=== PATIENT | male | born 1970 | race Caucasian/White ===

== ENCOUNTER 2017-09-16 02:53 | Emergency (ER) | payer SELFPAY ==
[~2017-09-16] VITALS: Ht 170.2 cm; Wt 104.3 kg
[~2017-09-16 02:53] MED LIST: BUTA1CAP36 PO; CYC10 PO; CYCL10TA29 PO; DICL-195 PO; HYDR-3250 PO; HYDR-385 PO; HYDR-4309 PO; IBUP-1618; IBUP400T13 PO; KET10 PO; LISINOPRIL; LOR5/325 PO; LOR7.5/325 PO; NAP250 PO; NO HOME MEDS; ONDA4TAB PO; OXYC-865; OXYC1TAB54 PO; PROM-110 PO; SUMA25TA26 PO; TIZA4CAP6 PO; TOBROD OD; [UNRECOGNIZED DRUG - CODE] PO; [UNRECOGNIZED DRUG - CODE] PO
--- NOTE | 2017-09-16 02:57 | ER Report ---
History and Physical Time Seen By MD: 02:55 HPI/ROS CHIEF COMPLAINT: Nausea, vomiting, diarrhea HISTORY OF PRESENT ILLNESS: 46-year-old male presents ambulatory the ER complaining of vomiting and diarrhea for almost 16 hours. Patient had an ache salad sandwich yesterday for lunch. Patient's had severe abdominal cramps, bloating, vomiting and diarrhea without fever. Patient denies recent antibiotics or exposure to ill contacts. REVIEW OF SYSTEMS: Respiratory: No cough, no dyspnea. Cardiovascular: No chest pain, no palpitations. Gastrointestinal: As above Musculoskeletal: No back pain. Allergies: Coded Allergies: No Known Drug Allergies (Unverified , 09/16/17) Home Meds Active Scripts Promethazine Hcl (PROMETHAZINE HCL) 25 Mg Tablet, 25 MG PO Q4H Y for NAUSEA/ VOMITING, #14 TAB Prov:LUIS MORILLO DO 09/16/17 Ciprofloxacin Hcl (CIPRO) 500 Mg Tablet, 500 MG PO BID for infectious diarrhea, #10 Prov:LUIS MORILLO DO 09/16/17 Ondansetron Hcl (ZOFRAN) 4 Mg Tablet, 4 MG PO Q6H Y for NAUSEA/VOMITING, #12 Prov:LUIS MORILLO DO 09/16/17 Hydrocodone Bit/Acetaminophen (HYDROCODON-ACETAMINOPHEN 5-325) 1 Each Tablet, 1 EACH PO Q4-6H Y for PAIN, #12 TAB 0 Refills Prov:BRYAN ALMARAZ MD 06/28/16 Chlorzoxazone (CHLORZOXAZONE) 500 Mg Tablet, 500 MG PO Q8H Y for MUSCLE SPASMS, #30 TAB 0 Refills Prov:BRYAN ALMARAZ MD 06/28/16 Discontinued Scripts Hydrocodone Bit/Acetaminophen (NORCO 5-325 TABLET) 1 Each Tablet, 1 EACH PO Q4- 6H Y for PAIN, #10 TAB Prov:STEPHANIE MCGHEE-C 10/26/16 Chlorzoxazone (CHLORZOXAZONE) 500 Mg Tablet, 500 MG PO TID Y for pain, #12 TAB Prov:STEPHANIE MCGHEE-C 10/26/16 Ondansetron (ZOFRAN ODT) 4 Mg Tab.rapdis, 4 MG PO Q6H Y for NAUSEA/VOMITING, # 20 TAB.CHON 0 Refills Prov:BRYAN ALMARAZ MD 06/28/16 Tizanidine Hcl (ZANAFLEX) 4 Mg Capsule, 4 MG PO TID for Muscle Relaxant, #12 CAPSULE 0 Refills Prov:NAGA GAXIOLA MD 06/23/16 Hydrocodone Bit/Acetaminophen (HYDROCODON-ACETAMINOPHEN 5-325) 1 Each Tablet, 1 EACH PO Q4H for PAIN, #12 TAB Prov:NAGA GAXIOLA MD 06/23/16 Past Medical/Surgical History Migraines, chronic back pain, chronic hip pain Reviewed Nurses Notes: Yes Old Medical Records Reviewed: Yes Hx Smoking: No Smoking Status: Never Smoker Exposure to Second Hand Smoke?: No Hx Substance Use Disorder: No Hx Alcohol Use: No Constitutional Vital Sign - Last 24 Hours 09/16/17 09/16/17 09/16/17 09/16/17 02:58 03:01 03:08 03:30 Temp 98.9 Pulse 115 114 Resp 16 B/P (MAP) 146/100 146/100 (115) 158/101 (120) Pulse Ox 93 94 O2 Delivery Room Air 09/16/17 09/16/17 09/16/17 09/16/17 03:38 03:53 03:56 04:01 Pulse 103 107 106 108 Pulse Ox 95 95 95 09/16/17 09/16/17 09/16/17 09/16/17 04:16 04:30 04:31 04:36 Pulse 102 103 105 B/P (MAP) 126/73 (90) Pulse Ox 96 97 96 09/16/17 04:51 Pulse 102 Pulse Ox 96 Physical Exam General Appearance: The patient is alert, has no immediate need for airway protection and no current signs of toxicity. Vital signs stable, moderate tachycardia to 1:15, afebrile, slightly pale appearing, skin warm and dry HEENT: Pupils equal and round no injection. Oropharynx without redness or exudate, mucous members are moist Respiratory: Chest is non tender, lungs are clear to auscultation. Cardiac: regular rate and rhythm Gastrointestinal: Abdomen is soft, mild distention, non tender, no masses, bowel sounds hyperactive. Musculoskeletal: Neck: Neck is supple and non tender. No lymphadenopathy Extremities have full range of motion and are non tender. Skin: No rashes or lesions. DIFFERENTIAL DIAGNOSIS: After history and physical exam differential diagnosis was considered for abdominal pain including but not limited to appendicitis, cholecystitis, gastroenteritis, food poisoning, viral syndrome gastritis and urinary tract infection. Medical Decision Making Data Points Result Diagram: 09/16/17 0320 09/16/17 0320 Laboratory Hematology Test 09/16/17 03:00 09/16/17 03:20 Urine Color Yellow Urine Clarity Clear Urine pH 5.0 pH (4.8-9.5) Urine Specific [place] 1.023 Urine Protein Negative mg/dL (NEGATIVE) Urine Glucose (UA) Negative mg/dL (NEGATIVE) Urine Ketones Negative mg/dL (NEGATIVE) Urine Blood Negative (NEGATIVE) Urine Nitrite Negative (NEGATIVE) Urine Bilirubin Negative (NEGATIVE) Urine Urobilinogen Negative mg/dL (0.2-1.9) Urine Leukocyte Esterase Negative (NEGATIVE) Urine RBC None /HPF (0-2/HPF) Urine WBC <1 /HPF (0-5/HPF) Urine Squamous Epithelial Cells None /LPF (</=FEW) Urine Bacteria Negative /HPF (NONE-FEW) Urine Mucus Few /HPF (NONE-FEW) Stool Leukocytes, Qualitative Positive Red Blood Count 6.10 M/uL (4.00-5.60) Mean Corpuscular Volume 87.7 fL (80.0-96.0) Mean Corpuscular Hemoglobin 30.5 pg (26.0-33.0) Mean Corpuscular Hemoglobin Concent 34.7 g/dL (32.0-36.0) Red Cell Distribution Width 12.8 % (11.5-14.5) Mean Platelet Volume 9.0 fL (7.2-11.1) Neutrophils (%) (Auto) 88.4 % (39.4-72.5) Lymphocytes (%) (Auto) 4.5 % (17.6-49.6) Monocytes (%) (Auto) 6.7 % (4.1-12.4) Eosinophils (%) (Auto) 0.1 % (0.4-6.7) Basophils (%) (Auto) 0.3 % (0.3-1.4) Nucleated RBC Relative Count (auto) 0.3 /100WBC Neutrophils # (Auto) 12.3 K/uL (2.0-7.4) Lymphocytes # (Auto) 0.6 K/uL (1.3-3.6) Monocytes # (Auto) 0.9 K/uL (0.3-1.0) Eosinophils # (Auto) 0.0 K/uL (0.0-0.5) Basophils # (Auto) 0.0 K/uL (0.0-0.1) Nucleated RBC Absolute Count (auto) 0.04 K/uL Sodium Level 135 mmol/L (137-145) Potassium Level 4.3 mmol/L (3.5-5.0) Chloride Level 99 mmol/L (98-107) Carbon Dioxide Level 21 mmol/L (22-30) Blood Urea Nitrogen 15 mg/dl (9-21) Creatinine 0.90 mg/dl (0.66-1.25) Glomerular Filtration Rate Calc > 60.0 Random Glucose 130 mg/dl (75-110) Lactate 1.6 mmol/L (0.7-2.1) Calcium Level 9.8 mg/dl (8.4-10.2) Total Bilirubin 1.0 mg/dl (0.2-1.3) Aspartate Amino Transf (AST/SGOT) 19 U/L (0-35) Alanine Aminotransferase (ALT/SGPT) 47 U/L (0-56) Alkaline Phosphatase 98 U/L (0-126) Total Protein 7.7 gm/dl (6.3-8.2) Albumin 4.6 g/dl (3.5-5.0) Amylase Level 44 U/L (0-110) Lipase 83 U/L (23-300) Chemistry Test 09/16/17 03:00 09/16/17 03:20 Urine Color Yellow Urine Clarity Clear Urine pH 5.0 pH (4.8-9.5) Urine Specific [place] 1.023 Urine Protein Negative mg/dL (NEGATIVE) Urine Glucose (UA) Negative mg/dL (NEGATIVE) Urine Ketones Negative mg/dL (NEGATIVE) Urine Blood Negative (NEGATIVE) Urine Nitrite Negative (NEGATIVE) Urine Bilirubin Negative (NEGATIVE) Urine Urobilinogen Negative mg/dL (0.2-1.9) Urine Leukocyte Esterase Negative (NEGATIVE) Urine RBC None /HPF (0-2/HPF) Urine WBC <1 /HPF (0-5/HPF) Urine Squamous Epithelial Cells None /LPF (</=FEW) Urine Bacteria Negative /HPF (NONE-FEW) Urine Mucus Few /HPF (NONE-FEW) Stool Leukocytes, Qualitative Positive White Blood Count 13.9 k/uL (4.5-11.0) Red Blood Count 6.10 M/uL (4.00-5.60) Hemoglobin 18.6 g/dL (14.0-18.0) Hematocrit 53.5 % (42.0-52.0) Mean Corpuscular Volume 87.7 fL (80.0-96.0) Mean Corpuscular Hemoglobin 30.5 pg (26.0-33.0) Mean Corpuscular Hemoglobin Concent 34.7 g/dL (32.0-36.0) Red Cell Distribution Width 12.8 % (11.5-14.5) Platelet Count 267 K/uL (150-450) Mean Platelet Volume 9.0 fL (7.2-11.1) Neutrophils (%) (Auto) 88.4 % (39.4-72.5) Lymphocytes (%) (Auto) 4.5 % (17.6-49.6) Monocytes (%) (Auto) 6.7 % (4.1-12.4) Eosinophils (%) (Auto) 0.1 % (0.4-6.7) Basophils (%) (Auto) 0.3 % (0.3-1.4) Nucleated RBC Relative Count (auto) 0.3 /100WBC Neutrophils # (Auto) 12.3 K/uL (2.0-7.4) Lymphocytes # (Auto) 0.6 K/uL (1.3-3.6) Monocytes # (Auto) 0.9 K/uL (0.3-1.0) Eosinophils # (Auto) 0.0 K/uL (0.0-0.5) Basophils # (Auto) 0.0 K/uL (0.0-0.1) Nucleated RBC Absolute Count (auto) 0.04 K/uL Glomerular Filtration Rate Calc > 60.0 Lactate 1.6 mmol/L (0.7-2.1) Calcium Level 9.8 mg/dl (8.4-10.2) Total Bilirubin 1.0 mg/dl (0.2-1.3) Aspartate Amino Transf (AST/SGOT) 19 U/L (0-35) Alanine Aminotransferase (ALT/SGPT) 47 U/L (0-56) Alkaline Phosphatase 98 U/L (0-126) Total Protein 7.7 gm/dl (6.3-8.2) Albumin 4.6 g/dl (3.5-5.0) Amylase Level 44 U/L (0-110) Lipase 83 U/L (23-300) Urinalysis Test 09/16/17 03:00 Urine Color Yellow Urine Clarity Clear Urine pH 5.0 pH (4.8-9.5) Urine Specific [place] 1.023 Urine Protein Negative mg/dL (NEGATIVE) Urine Glucose (UA) Negative mg/dL (NEGATIVE) Urine Ketones Negative mg/dL (NEGATIVE) Urine Blood Negative (NEGATIVE) Urine Nitrite Negative (NEGATIVE) Urine Bilirubin Negative (NEGATIVE) Urine Urobilinogen Negative mg/dL (0.2-1.9) Urine Leukocyte Esterase Negative (NEGATIVE) Urine RBC None /HPF (0-2/HPF) Urine WBC <1 /HPF (0-5/HPF) Urine Squamous Epithelial Cells None /LPF (</=FEW) Urine Bacteria Negative /HPF (NONE-FEW) Urine Mucus Few /HPF (NONE-FEW) Microbiology Microbiology Date/Time Source Procedure Growth Status 09/16/17 03:00 Stool Gram Stain - Final Resulted 09/16/17 03:00 Stool Stool Culture Pending Resulted ED Course/Re-evaluation Clinical Indication for ER IV: Hydration, IV Access ED Course Patient was admitted to an examination room. H&P was done. The dental diagnoses was considered. On clinical examination. Patient has benign nonsurgical abdomen. His vital signs are stable. He is tachycardic. I suspect he is volume depleted from his diarrhea and vomiting. A specimen of the diarrhea was analyzed and shows white blood cells, suspicious for infectious bacteria. His white blood cell count elevated at 13,900. Patient received 2 L of fluid, Zofran 8 mg, Toradol 30, Phenergan 12.5 g IV. He feels much better. His vomiting is stopped. Be discharged home on Zofran, Phenergan. He is given 2 Percocet. Patient advised clear liquid diet for 24- 48 hours. He is covered with Cipro for potential infectious diarrhea. Decision to Disposition Date: Sep 16, 2017 Decision to Disposition Time: 03:12 Depart Departure Latest Vital Signs Vital Signs Date Time Temp Pulse Resp B/P (MAP) Pulse Ox O2 Delivery O2 Flow Rate FiO2 09/16/17 04:51 102 96 09/16/17 04:30 126/73 (90) 09/16/17 02:58 98.9 16 Room Air Impression: Primary Impression: Food poisoning Additional Impression: Chronic pain disorder Condition: Improved Disposition: HOME OR SELF-CARE New Scripts Promethazine Hcl (PROMETHAZINE HCL) 25 Mg Tablet 25 MG PO Q4H Y for NAUSEA/VOMITING, #14 TAB Prov: LUIS MORILLO DO 09/16/17 Ciprofloxacin Hcl (CIPRO) 500 Mg Tablet 500 MG PO BID for infectious diarrhea, #10 Prov: LUIS MORILLO DO 09/16/17 Ondansetron Hcl (ZOFRAN) 4 Mg Tablet 4 MG PO Q6H Y for NAUSEA/VOMITING, #12 Prov: LUIS MORILLO DO 09/16/17 Patient Instructions: Clear Liquid Diet (ED), Food Poisoning (ED) Additional Instructions: Follow clear liquid diet for 24 hours, then advance to [place] diet, bananas, rice , applesauce, toast Problem Qualifiers Primary Impression: Food poisoning Encounter type: initial encounter Injury intent: accidental or unintentional Qualified Codes: T62.91XA - Toxic effect of unspecified noxious substance eaten as food, accidental (unintentional), initial encounter LUIS MORILLO DO Sep 16, 2017 02:57
[2017-09-16] MEDS ORDERED: NS(*) 0.9% 1000 ML BAG 1,000 ML IV ONE ×2 (03:08→03:45)
[2017-09-16] MEDS ORDERED: KETOROLAC 30 MG/ML VIAL IVP ONE (03:10)
[2017-09-16] MEDS ORDERED: ONDANSETRON 4 MG/2 ML VIAL IVP ONE (03:10)
[2017-09-16] MEDS ORDERED: ONDA4TAB97 PO (03:13)
[2017-09-16 03:45] LABS: PLATELET COUNT, AUTOMATED 267 K/uL (150-450)
[2017-09-16] MEDS ORDERED: PROMETHAZINE 25 MG/ML 1 ML AMP IVP ONE (03:45)
[2017-09-16 04:30] VITALS: BP 126/73
[2017-09-16] MEDS ORDERED: CIPR-344 PO (04:30)
[2017-09-16] MEDS ORDERED: PROM-110 PO (04:48)
[2017-09-16] MEDS ORDERED: CIPROFLOXACIN 500 MG TAB PO ONE (04:50)
[2017-09-16] MEDS ORDERED: PROMETHAZINE HCL 25 MG TAB TH 2 TAB/BOTTLE PO ONE (04:50)
[2017-09-16] MEDS ORDERED: oxyCODONE/ACETAMIN 5/325MG TH 2 TAB/BOTTLE PO ONE (04:50)
== END 2017-09-16 05:04 | disposition home or self-care (01) ==
LOC: ER 03:43
DX: T62.91XA Toxic effect of unspecified noxious substance eaten as food, accidental (unintentional), initial encounter (principal); G89.4 Chronic pain syndrome
CPT/HCPCS: 81001; 82150; 83605; 83630; 83690; 85025; 87045; 87205; 96361; 96374; 96375; 99283; J1885; J2405; J7030; 82040; 82247; 82310; 82374; 82435; 82565; 82947; 84075; 84132; 84155; 84295; 84450; 84460; 84520

== ENCOUNTER 2017-09-17 22:46 | Emergency (ER) | payer SELFPAY ==
[~2017-09-17 22:46] MED LIST changes: +CIPR-344 PO; +ONDA4TAB97 PO
--- NOTE | 2017-09-17 23:09 | ER Report ---
History and Physical Time Seen By MD: 23:09 Hx. of Stated Complaint: PT RETURN VISIT FOR FOOD POISONING FROM YESTERDAY. SAME SYMPTOMS. N/V/D. HPI/ROS CHIEF COMPLAINT: abdominal cramping and nausea HISTORY OF PRESENT ILLNESS: This is a 46 year old male. He is having continued abdominal cramping. He was diagnosed with what appeared to be food poisoning 2 nights ago. The diarrhea has started to resolve and stools are beginning to firm up. He still has nausea and vomiting. Generalized abdominal cramping. Normal urination. No fevers or chills. REVIEW OF SYSTEMS: Constitutional: As above. Eyes: No vision changes. ENT: No sore throat. No congestion. Cardiovascular: No chest pain. Respiratory: No shortness of breath. Gastrointestinal: As above. Genitourinary: As above. Musculoskeletal: No back pain. No extremity pain. Skin: No rashes. Neurological: No numbness. No weakness. Allergies: Coded Allergies: No Known Drug Allergies (Unverified , 09/17/17) Home Meds Active Scripts Ondansetron (ZOFRAN ODT) 4 Mg Tab.rapdis, 4 MG PO Q6H Y for NAUSEA/VOMITING, # 20 TAB.CHON 0 Refills Prov:BRYAN ALMARAZ MD 09/18/17 Oxycodone Hcl/Acetaminophen (PERCOCET 5-325 MG TABLET) 1 Each Tablet, 1 EACH PO Q4H Y for PAIN, #12 TAB 0 Refills Prov:BRYAN ALMARAZ MD 09/18/17 Promethazine Hcl (PROMETHAZINE HCL) 25 Mg Tablet, 25 MG PO Q4H Y for NAUSEA/ VOMITING, #14 TAB Prov:LUIS MORILLO DO 09/16/17 Ciprofloxacin Hcl (CIPRO) 500 Mg Tablet, 500 MG PO BID for infectious diarrhea, #10 Prov:LUIS MORILLO DO 09/16/17 Ondansetron Hcl (ZOFRAN) 4 Mg Tablet, 4 MG PO Q6H Y for NAUSEA/VOMITING, #12 Prov:LUIS MORILLO DO 09/16/17 Hydrocodone Bit/Acetaminophen (HYDROCODON-ACETAMINOPHEN 5-325) 1 Each Tablet, 1 EACH PO Q4-6H Y for PAIN, #12 TAB 0 Refills Prov:BRYAN ALMARAZ MD 06/28/16 Chlorzoxazone (CHLORZOXAZONE) 500 Mg Tablet, 500 MG PO Q8H Y for MUSCLE SPASMS, #30 TAB 0 Refills Prov:BRYAN ALMARAZ MD 06/28/16 Discontinued Scripts Hydrocodone Bit/Acetaminophen (NORCO 5-325 TABLET) 1 Each Tablet, 1 EACH PO Q4- 6H Y for PAIN, #10 TAB Prov:STEPHANIE MCGHEE PA-C 10/26/16 Chlorzoxazone (CHLORZOXAZONE) 500 Mg Tablet, 500 MG PO TID Y for pain, #12 TAB Prov:STEPHANIE MCGHEE PA-C 10/26/16 Ondansetron (ZOFRAN ODT) 4 Mg Tab.rapdis, 4 MG PO Q6H Y for NAUSEA/VOMITING, # 20 TAB.CHON 0 Refills Prov:BRYAN ALMARAZ MD 06/28/16 Tizanidine Hcl (ZANAFLEX) 4 Mg Capsule, 4 MG PO TID for Muscle Relaxant, #12 CAPSULE 0 Refills Prov:NAGA GAXIOLA MD 06/23/16 Hydrocodone Bit/Acetaminophen (HYDROCODON-ACETAMINOPHEN 5-325) 1 Each Tablet, 1 EACH PO Q4H for PAIN, #12 TAB Prov:NAGA GAXIOLA MD 06/23/16 Reviewed Nurses Notes: Yes Hx Smoking: No Smoking Status: Never Smoker Exposure to Second Hand Smoke?: No Hx Substance Use Disorder: No Hx Alcohol Use: No Constitutional Vital Sign - Last 24 Hours 09/17/17 09/17/17 09/17/17 09/17/17 22:52 23:01 23:04 23:16 Temp 99.1 Pulse 112 109 110 Resp 16 B/P (MAP) 136/88 (104) 136/88 Pulse Ox 93 94 92 O2 Delivery Room Air 09/17/17 09/17/17 09/18/17 09/18/17 23:31 23:46 00:31 00:48 Pulse 112 106 100 85 Resp 16 B/P (MAP) 141/90 (107) Pulse Ox 92 88 94 92 O2 Delivery Room Air Physical Exam General Appearance: The patient is alert. No acute distress. Eyes: Pupils are equal, round. No pallor, injection or icterus. ENT: Mucous membranes are moist. Normal oral mucosa. Posterior oropharynx is normal. Respiratory: Lungs are clear to auscultation. Cardiovascular: Regular rate and rhythm. No murmurs, gallops or rubs. Normal capillary refill. Gastrointestinal: Abdomen is diffusely discomfort with palpation, no focal pain. Slight distention. No rebound or guarding. No masses or organomegaly. Normal active bowel sounds. Neurological: Alert and oriented x3. Skin: Warm and dry. No rashes. Musculoskeletal: Extremities are nontender. No tenderness in palpation of the cervical, thoracic and lumbar spine. DIFFERENTIAL DIAGNOSIS: After history and physical exam, differential diagnosis was considered for abdominal pain including but not limited to food poisoning or enteritis. Medical Decision Making Data Points Result Diagram: 09/17/17230409/17/172304 Laboratory Hematology Test 09/17/17 23:05 Red Blood Count 4.30 M/uL (4.00-5.60) Mean Corpuscular Volume 91.0 fL (80.0-96.0) Mean Corpuscular Hemoglobin 31.0 pg (26.0-33.0) Mean Corpuscular Hemoglobin Concent 34.0 g/dL (32.0-36.0) Red Cell Distribution Width 13.1 % (11.5-14.5) Mean Platelet Volume 8.7 fL (7.2-11.1) Neutrophils (%) (Auto) 81.8 % (39.4-72.5) Lymphocytes (%) (Auto) 7.1 % (17.6-49.6) Monocytes (%) (Auto) 10.3 % (4.1-12.4) Eosinophils (%) (Auto) 0.7 % (0.4-6.7) Basophils (%) (Auto) 0.1 % (0.3-1.4) Nucleated RBC Relative Count (auto) 0.0 /100WBC Neutrophils # (Auto) 6.6 K/uL (2.0-7.4) Lymphocytes # (Auto) 0.6 K/uL (1.3-3.6) Monocytes # (Auto) 0.8 K/uL (0.3-1.0) Eosinophils # (Auto) 0.1 K/uL (0.0-0.5) Basophils # (Auto) 0.0 K/uL (0.0-0.1) Nucleated RBC Absolute Count (auto) 0.00 K/uL Sodium Level 135 mmol/L (137-145) Potassium Level 4.4 mmol/L (3.5-5.0) Chloride Level 104 mmol/L (98-107) Carbon Dioxide Level 17 mmol/L (22-30) Blood Urea Nitrogen 17 mg/dl (9-21) Creatinine 0.90 mg/dl (0.66-1.25) Glomerular Filtration Rate Calc > 60.0 Random Glucose 110 mg/dl (75-110) Calcium Level 8.5 mg/dl (8.4-10.2) Total Bilirubin 0.9 mg/dl (0.2-1.3) Aspartate Amino Transf (AST/SGOT) 42 U/L (0-35) Alanine Aminotransferase (ALT/SGPT) 58 U/L (0-56) Alkaline Phosphatase 80 U/L (0-126) Total Protein 7.5 gm/dl (6.3-8.2) Albumin 4.3 g/dl (3.5-5.0) Chemistry Test 09/17/17 23:05 White Blood Count 8.1 k/uL (4.5-11.0) Red Blood Count 4.30 M/uL (4.00-5.60) Hemoglobin 13.3 g/dL (14.0-18.0) Hematocrit 39.2 % (42.0-52.0) Mean Corpuscular Volume 91.0 fL (80.0-96.0) Mean Corpuscular Hemoglobin 31.0 pg (26.0-33.0) Mean Corpuscular Hemoglobin Concent 34.0 g/dL (32.0-36.0) Red Cell Distribution Width 13.1 % (11.5-14.5) Platelet Count 148 K/uL (150-450) Mean Platelet Volume 8.7 fL (7.2-11.1) Neutrophils (%) (Auto) 81.8 % (39.4-72.5) Lymphocytes (%) (Auto) 7.1 % (17.6-49.6) Monocytes (%) (Auto) 10.3 % (4.1-12.4) Eosinophils (%) (Auto) 0.7 % (0.4-6.7) Basophils (%) (Auto) 0.1 % (0.3-1.4) Nucleated RBC Relative Count (auto) 0.0 /100WBC Neutrophils # (Auto) 6.6 K/uL (2.0-7.4) Lymphocytes # (Auto) 0.6 K/uL (1.3-3.6) Monocytes # (Auto) 0.8 K/uL (0.3-1.0) Eosinophils # (Auto) 0.1 K/uL (0.0-0.5) Basophils # (Auto) 0.0 K/uL (0.0-0.1) Nucleated RBC Absolute Count (auto) 0.00 K/uL Glomerular Filtration Rate Calc > 60.0 Calcium Level 8.5 mg/dl (8.4-10.2) Total Bilirubin 0.9 mg/dl (0.2-1.3) Aspartate Amino Transf (AST/SGOT) 42 U/L (0-35) Alanine Aminotransferase (ALT/SGPT) 58 U/L (0-56) Alkaline Phosphatase 80 U/L (0-126) Total Protein 7.5 gm/dl (6.3-8.2) Albumin 4.3 g/dl (3.5-5.0) EKG/Imaging Imaging COMPUTED TOMOGRAPHY ABDOMEN AND PELVIS WITH INTRAVENOUS CONTRAST DATE OF EXAM: 09/17/2017 11:14 PM INDICATION: Diarrhea, cramps and pain, distended. COMPARISON: None. TECHNIQUE: Contrast enhanced abdomen and pelvis CT performed during the injection of 75 ml of Isovue 370. Sagittal and coronal reconstructions were performed. One of the following dose optimization techniques was utilized in the performance of this exam: Automated exposure control; adjustment of the mA and/or kV according to the patient's size; or use of an iterative reconstruction technique. Specific details can be referenced in the facility's radiology CT exam operational policy. FINDINGS: Lung bases: 3 mm subpleural nodule in the right lower lobe on image 20 series 2. Liver and hepatic vasculature: Liver is enlarged and diffusely hypoattenuating. No suspicious focal lesion or acute abnormality. Gallbladder and bile ducts: Normal. Spleen: Normal. Pancreas: Mild prominence of the pancreatic duct. No focal lesion or acute inflammation. Adrenals: Normal. Kidneys, ureters and bladder: Normal. Retroperitoneum and aorta: Normal caliber no adenopathy. Aorta with minimal atherosclerosis. GI tract, mesentery and peritoneum: There are multiple mildly prominent loops of fluid-filled small bowel. No definite evidence of obstruction. No pneumatosis, pneumoperitoneum or free fluid. Normal appendix. Prostate and seminal vesicles: Normal. Bones and soft tissues: No acute abnormality or suspicious lesion. Bilateral sacroiliitis. Multilevel Schmorl's nodes. Small fat-containing inguinal hernias. IMPRESSION: 1. Suspected mild infectious or inflammatory enteritis. 2. Hepatomegaly and probable steatosis. 3. Right lower lobe 3 mm subpleural nodule. Current Fleischner Society recommendations for incidental pulmonary nodules <6mm in size (average of long and short axis): - In a patient with low risk for malignancy (i.e., minimal or absent smoking history, no known malignancy or other risk factors): No routine follow-up. - In a patient at high risk for malignancy (e.g., smoking history and/or other known risk factors): Optional noncontrast CT at 12 months. If unchanged no further follow-up necessary. Nodules less than 6 mm do not require routine follow-up, but certain patients at high risk with suspicious nodule morphology, upper lobe location, or both may warrant 12 month follow-up. Calos H, Rob D, Britni J, et al. Guidelines for management of small pulmonary nodules detected on CT images: from the Fleischner society 2017. Report Dictated By: Carlos Manuel Shirley MD at 09/18/2017 12:13 AM ED Course/Re-evaluation Clinical Indication for ER IV: Hydration, IV Access ED Course Discussed results of CT scan and labs with the patient. The abdominal cramps and nausea appears to be a non-specific enteritis, possibly due to virus verus food poisoning. No changes in plan at this time, continue current medications. Provided some Percocet for pain and Zofran for nausea. Recommended follow-up with primary care for this as well as pulmonary nodule. Decision to Disposition Date: Sep 18, 2017 Decision to Disposition Time: 00:33 Depart Departure Latest Vital Signs Vital Signs Date Time Temp Pulse Resp B/P (MAP) Pulse Ox O2 Delivery O2 Flow Rate FiO2 09/18/17 00:48 85 16 141/90 (107) 92 Room Air 09/17/17 23:04 99.1 Impression: Primary Impression: Enteritis Condition: Improved Disposition: HOME OR SELF-CARE New Scripts Ondansetron (ZOFRAN ODT) 4 Mg Tab.rapdis 4 MG PO Q6H Y for NAUSEA/VOMITING, #20 TAB.CHON 0 Refills Prov: BRYAN ALMARAZ MD 09/18/17 Oxycodone Hcl/Acetaminophen (PERCOCET 5-325 MG TABLET) 1 Each Tablet 1 EACH PO Q4H Y for PAIN, #12 TAB 0 Refills Prov: BRYAN ALMARAZ MD 09/18/17 Patient Instructions: Enteritis (ED) Additional Instructions: This should resolve with further time. Keep drinking extra fluids the next few days. Take Percocet 5/325, one every 4 hours as needed for pain. Take Zofran 4mg, one every 6 hours as needed for nausea. BRYAN ALMARAZ MD Sep 17, 2017 23:09
[2017-09-17] MEDS ORDERED: MORPHINE 4 MG/ML SDV IVP ONE (23:15)
[2017-09-17] MEDS ORDERED: ONDANSETRON 4 MG/2 ML VIAL IVP ONE (23:15)
[2017-09-17] MEDS ORDERED: NS(*) 0.9% 1000 ML BAG 1,000 ML IV ONE (23:15)
[2017-09-17 23:22] LABS: PLATELET COUNT, AUTOMATED 148 K/uL (150-450)
[2017-09-17] MEDS ORDERED: IOPAMIDOL 76% 75 ML INFUS BTL 75 ML ONE (23:25)
--- NOTE | 2017-09-18 00:28 | RADIOLOGY IMAGING REPORT ---
FACILITY: [facility] PATIENT NAME: Jesu Huertas : 1970 MR: [id number] V: [id number] EXAM DATE: ORDERING PHYSICIAN: BRYAN ALMARAZ TECHNOLOGIST: [facility] Patient: Jesu Huertas : 1970 Visit/Account:[id number] Date of Sevice: 09/17/2017 COMPUTED TOMOGRAPHY ABDOMEN AND PELVIS WITH INTRAVENOUS CONTRAST DATE OF EXAM: 09/17/2017 11:14 PM INDICATION: Diarrhea, cramps and pain, distended. COMPARISON: None. TECHNIQUE: Contrast enhanced abdomen and pelvis CT performed during the injection of 75 ml of Isovue 370. Sagittal and coronal reconstructions were performed. One of the following dose optimization te chniques was utilized in the performance of this exam: Automated exposure control; adjustment of the mA and/or kV according to the patient's size; or use of an iterative reconstruction technique. Spec [facility] details can be referenced in the facility's radiology CT exam operational policy. FINDINGS: Lung bases: 3 mm subpleural nodule in the right lower lobe on image 20 series 2. Liver and hepatic vasculature: Liver is enlarged and diffusely hypoattenuating. No suspicious focal lesion or acute abnormality. Gallbladder and bile ducts: Normal. Spleen: Normal. Pancreas: Mild prominence of the pancreatic duct. No focal lesion or acute inflammation. Adrenals: Normal. Kidneys, ureters and bladder: Normal. Retroperitoneum and aorta: Normal caliber no adenopathy. Aorta with minimal atherosclerosis. GI tract, mesentery and peritoneum: There are multiple mildly prominent loops of fluid-filled small bowel. No definite evidence of obstruction. No pneumatosis, pneumoperitoneum or free fluid. Normal appendix. Prostate and seminal vesicles: Normal. Bones and soft tissues: No acute abnormality or suspicious lesion. Bilateral sacroiliitis. Multile jatin Schmorl's nodes. Small fat-containing inguinal hernias. IMPRESSION: 1. Suspected mild infectious or inflammatory enteritis. 2. Hepatomegaly and probable steatosis. 3. Right lower lobe 3 mm subpleural nodule. Current Fleischner Society recommendations for incident al pulmonary nodules <6mm in size (average of long and short axis): - In a patient with low risk for malignancy (i.e., minimal or absent smoking history, no known malig alicia or other risk factors): No routine follow-up. - In a patient at high risk for malignancy (e.g., smoking history and/or other known risk factors): Optional noncontrast CT at 12 months. If unchanged no further follow-up necessary. Nodules less than 6 mm do not require routine follow-up, but certain patients at high risk with suspi cious nodule morphology, upper lobe location, or both may warrant 12 month follow-up. Caols H, Rob Hunt, Britni J, et al. Guidelines for management of small pulmonary nodules detected on CT images: from the Fleischner society 2017. Report Dictated By: Carlos Manuel Shirley MD at 09/18/2017 12:13 AM Report E-Signed By: Carlos Manuel Shirley MD at 09/18/2017 12:23 AM WSN:[id number]
[2017-09-18] MEDS ORDERED: ONDANSETRON 4 MG ODT TH SL ONE (00:35)
[2017-09-18] MEDS ORDERED: oxyCODONE/ACETAMIN 5/325MG TH 2 TAB/BOTTLE PO ONE (00:35)
[2017-09-18] MEDS ORDERED: ONDANSETRON 4 MG ODT TABDP SL ONE (00:35)
[2017-09-18] MEDS ORDERED: OXYC-865 PO (00:38)
[2017-09-18] MEDS ORDERED: ONDA4TAB PO (00:38)
[2017-09-18 00:48] VITALS: BP 141/90
== END 2017-09-18 00:50 | disposition home or self-care (01) ==
LOC: ER 23:35
DX: K52.9 Noninfective gastroenteritis and colitis, unspecified (principal)
CPT/HCPCS: 74177; 85025; 96361; 96374; 96375; 99284; J2270; J2405; J7030; Q9967; S0119; 82040; 82247; 82310; 82374; 82435; 82565; 82947; 84075; 84132; 84155; 84295; 84450; 84460; 84520

== ENCOUNTER 2018-02-20 15:46 | Emergency (ER) | payer SELFPAY ==
[~2018-02-20 15:46] MED LIST changes: +OXYC-865 PO
[2018-02-20 15:52] VITALS: BP 146/106
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
[2018-02-20] MEDS ORDERED: diphenhydrAMINE 50 MG/ML VIAL IM ONE (16:15)
[2018-02-20] MEDS ORDERED: PROMETHAZINE 25 MG/ML 1 ML AMP IM ONE (16:15)
[2018-02-20] MEDS ORDERED: DEXAMETHASONE SOD PHOS 10MG/ML IM ONE (16:15)
[2018-02-20] MEDS ORDERED: KETOROLAC 15 MG/ML VIAL IM ONE (16:15)
== END 2018-02-20 18:12 | disposition home or self-care (01) ==
LOC: ER 16:04
DX: G43.009 Migraine without aura, not intractable, without status migrainosus (principal); I10 Essential (primary) hypertension
CPT/HCPCS: 96372; 99284; J1100; J1200; J1885; J2550

== ENCOUNTER 2018-03-26 19:59 | Emergency (ER) | payer SELFPAY ==
--- NOTE | 2018-03-26 20:07 | ER Report ---
History and Physical Time Seen By MD: 20:08 Hx. of Stated Complaint: PT REPORTS "MASSIVE HEADACHE" HPI/ROS CHIEF COMPLAINT: Migraine headache HISTORY OF PRESENT ILLNESS: 47-year-old male with a history of migraine headaches notes onset of his classic migraine headache at 1 PM. He tried to get apneic some medication without improvement. He woke up with the headache being much worse and presented to the ER for evaluation. He describes bifrontal with photophobia and nausea. He's had no vomiting as of yet. He denies stiff neck or fever. Patient took his own hydrocodone which she takes for back pain at home without improvement. REVIEW OF SYSTEMS: Respiratory: No cough, no dyspnea. Cardiovascular: No chest pain, no palpitations. Gastrointestinal: No vomiting, no abdominal pain. Musculoskeletal: No back pain. Allergies: Coded Allergies: No Known Drug Allergies (Unverified , 03/26/18) Home Meds Active Scripts Hydrocodone Bit/Acetaminophen (HYDROCODON-ACETAMINOPHEN 5-325) 1 Each Tablet, 1 EACH PO Q4-6H PRN for PAIN, #12 TAB 0 Refills Prov:BRYAN ALMARAZ MD 06/28/16 Reviewed Nurses Notes: Yes Old Medical Records Reviewed: Yes Hx Smoking: No Smoking Status: Never Smoker Exposure to Second Hand Smoke?: No Hx Substance Use Disorder: No Hx Alcohol Use: No Constitutional Vital Sign - Last 24 Hours 03/26/18 03/26/18 03/26/18 03/26/18 20:04 20:04 20:14 20:29 Temp 97.8 Pulse 98 101 97 Resp 18 B/P (MAP) 151/103 151/103 (119) Pulse Ox 93 92 93 O2 Delivery Room Air 03/26/18 03/26/18 03/26/18 03/26/18 20:30 20:44 20:59 21:00 Pulse 94 B/P (MAP) 135/102 (113) 129/100 (110) Pulse Ox 91 90 03/26/18 03/26/18 03/26/18 03/26/18 21:14 21:29 21:30 21:44 Pulse 91 92 87 B/P (MAP) 123/27 (59) Pulse Ox 91 90 91 03/26/18 03/26/18 03/26/18 21:45 22:00 22:15 Pulse 86 85 89 B/P (MAP) 140/101 (114) Pulse Ox 90 91 90 Physical Exam Vital signs stable, afebrile, pulse ox normal General Appearance: The patient is alert, has no immediate need for airway protection and no current signs of toxicity. Mild distress HEENT: Pupils equal and round no injection.+ Photophobia, TMs normal, oropharynx without redness or exudate, mucous numbering to moist Respiratory: Chest is non tender, lungs are clear to auscultation. Cardiac: regular rate and rhythm Gastrointestinal: Abdomen is soft and non tender, no masses, bowel sounds normal. Musculoskeletal: Neck: Neck is supple and non tender. No lymphadenopathy, no meningismus Extremities have full range of motion and are non tender. Skin: No rashes or lesions. Neuro: Alert and oriented 3, cranial nerves II through XII intact motor 5/5 weather stripper, sensory intact to light touch 4 DIFFERENTIAL DIAGNOSIS: After history and physical exam differential diagnosis was considered for headache including but not limited to subarachnoid hemorrhage, migraine headache, tension headache and infectious causes such as meningitis, pharyngitis and sinusitis. Medical Decision Making ED Course/Re-evaluation ED Course Patient was admitted to an examination room. H&P was done. The differential diagnoses was considered. On clinical examination. Patient has a nonfocal neurologic examination. He has a headache. He started tried opiates at home. Patient's medicated orally with Naprosyn, Phenergan, Decadron and Reglan. After one hour. His headaches unimproved. He is medicated with Tylenol, tramadol and Benadryl. After another hour of observation he still has significant headache pain. He'll be discharged home with a take home pack of Dilaudid 2 mg to alleviate his headache. She is advised to follow-up with his primary care if unimproved in 2-3 days. Decision to Disposition Date: Mar 26, 2018 Decision to Disposition Time: 23:18 Depart Departure Latest Vital Signs Vital Signs Date Time Temp Pulse Resp B/P (MAP) Pulse Ox O2 Delivery O2 Flow Rate FiO2 03/26/18 22:15 89 90 03/26/18 22:00 140/101 (114) 03/26/18 20:04 97.8 18 Room Air Impression: Primary Impression: Migraine headache Condition: Improved Disposition: HOME OR SELF-CARE Patient Instructions: Migraine Headache (ED) Additional Instructions: Follow-up with your primary care next week if your headache persists Problem Qualifiers Primary Impression: Migraine headache Migraine type: unspecified Status migrainosus presence: without status migrainosus Intractability: intractable Qualified Codes: G43.919 - Migraine, unspecified, intractable, without status migrainosus LUIS MORILLO DO Mar 26, 2018 20:07
[2018-03-26] MEDS ORDERED: METOCLOPRAMIDE 10 MG TAB PO ONE (20:15)
[2018-03-26] MEDS ORDERED: DEXAMETHASONE 4 MG TAB PO ONE (20:15)
[2018-03-26] MEDS ORDERED: NAPROXEN 500 MG TAB PO ONE (20:15)
[2018-03-26] MEDS ORDERED: PROMETHAZINE HCL 25 MG TAB PO ONE (20:15)
[2018-03-26] MEDS ORDERED: ACETAMIN PO ONE (21:45)
[2018-03-26] MEDS ORDERED: ACETAMINOPHEN 325 MG TAB PO ONE (21:45)
[2018-03-26] MEDS ORDERED: TRAMADOL PO ONE (21:45)
[2018-03-26 22:00] VITALS: BP 140/101
[2018-03-26] MEDS ORDERED: traMADol 50 MG TAB PO ONE (22:15)
[2018-03-26] MEDS ORDERED: diphenhydrAMINE 25 MG CAP PO ONE (22:15)
[2018-03-26] MEDS ORDERED: HYDROmorphone 2 MG TAB TH 2 TAB/BOTTLE PO ONE (23:20)
== END 2018-03-26 23:30 | disposition home or self-care (01) ==
LOC: ER 20:09
DX: G43.919 Migraine, unspecified, intractable, without status migrainosus (principal)
CPT/HCPCS: 99283; A9270; J8540; J8597; Q0163; Q0169